=== PATIENT | female | born 1975 | race Caucasian/White ===

== ENCOUNTER 2020-02-21 11:23 | Outpatient (REF) | payer MEDICAID, SELFPAY | END 2020-02-21 11:24 | disposition home or self-care (01) | LOC: HO.LAB 11:23 | PROVIDERS: PCP Internal Medicine; Visit Provider Internal Medicine | DX: Z20.828 Contact with and (suspected) exposure to other viral communicable diseases (principal) | CPT/HCPCS: C9803; U0003 ==

== ENCOUNTER 2020-11-06 15:45 | Outpatient (REF) | payer OTHER, MEDICAID, SELFPAY | END 2020-11-06 15:46 | disposition home or self-care (01) | LOC: HO.LAB 15:45 | PROVIDERS: PCP Internal Medicine; Visit Provider Internal Medicine | DX: Z20.822 Contact with and (suspected) exposure to COVID-19 (principal) | CPT/HCPCS: C9803; U0003; U0005 ==

== ENCOUNTER 2021-01-07 08:09 | Outpatient (REF) | payer OTHER, MEDICAID, SELFPAY ==
--- NOTE | ~2021-01-07 | MM_ITS ---
EXAMINATION: MM SCREENING DIGITAL BREAST TOMOSYNTHESIS, BILATERAL CLINICAL INFORMATION: Screening. Asymptomatic. The lifetime risk of breast cancer based on the Tyrer-Cuzick Model is 7%. COMPARISON: Mammography: 11/19/2019, 12/28/2016, 11/04/2015, 10/26/2015; ultrasound right breast 11/04/2015, 12/28/2016, 11/19/2019. TECHNIQUE: Digital breast tomosynthesis is performed in both the craniocaudal and mediolateral oblique views along with computer-aided detection (CAD). Synthesized 2D images are generated from the tomosynthesis. FINDINGS: There are scattered areas of fibroglandular density (ACR BI-RADS breast composition Category b). There are no significant masses, abnormal calcifications, or other abnormalities. There is a stable oval mass anterior central 12:00 right breast, likely fibroadenoma on prior serial targeted ultrasound. Skin contours are smooth. No significant changes. MM/MM tomosynthesis screening BI IMPRESSION: No mammographic evidence of malignancy. ASSESSMENT: BI-RADS 2: Benign RECOMMENDATION: Routine annual mammography screening. This patient's information was entered into a reminder system with a target due date for their next mammogram.
== END 2021-01-07 08:10 | disposition home or self-care (01) ==
LOC: HO.MAMMO 08:09
PROVIDERS: PCP Internal Medicine; Visit Provider Internal Medicine
DX: Z12.31 Encounter for screening mammogram for malignant neoplasm of breast (principal)
CPT/HCPCS: 77063; 77067

== ENCOUNTER 2021-03-08 07:49 | Outpatient (REF) | payer OTHER, MEDICAID, SELFPAY ==
[2021-03-08 08:02] LABS: MANUAL DIFF FLAG NO
--- NOTE | 2021-03-08 08:03 | ECG_ITS ---
Test Reason : chest pain Blood Pressure : / mmHG Vent. Rate : 059 BPM Atrial Rate : 059 BPM P-R Int : 150 ms QRS Dur : 088 ms QT Int : 434 ms P-R-T Axes : 049 032 035 degrees QTc Int : 429 ms Sinus bradycardia with sinus arrhythmia Otherwise normal ECG No previous ECGs available Referred By: Lauren Blakely Electronically Signed By:RYAN MEEK
[2021-03-08 08:22] LABS: Basophils Percent Auto 0.2 % (0-2); Eosinophils Absolute Auto 0.1 X10*3/uL (0.0-0.4); Eosinophils Percent Auto 1.5 % (0-4); Hematocrit 38.1 % (37.0-47.0); Hemoglobin 12.6 g/dl (12.0-16.0); Imm Gran Abs Auto 0.04 X10*3/uL (0.00-0.03); Imm Gran Pct Auto 0.5 % (0.0-0.4); Lymphocytes Absolute Auto 3.1 X10*3/uL (1.2-4.9); Lymphocytes Percent Auto 37.8 % (20-40); Mean Corpuscular HGB Conc 33.1 g/dl (31.0-35.0); Mean Corpuscular Hemoglobin 30.1 pg (27.0-33.0); Mean Corpuscular Volume 90.9 fL (80.0-98.0); Mean Platelet Volume 10.5 fL (9.4-12.3); Monocytes Absolute Auto 0.6 X10*3/uL (0.1-1.2); Monocytes Percent Auto 6.7 % (2-11); Neutrophils Absolute Auto 4.4 x10*3/uL (2.0-8.3); Neutrophils Percent Auto 53.3 % (45-73); Platelet Count 320 X10*3/uL (160-400); Red Blood Count 4.19 X10*6/uL (4.20-5.50); Red Cell Distribution Width 11.7 % (11.0-16.0); White Blood Count 8.2 X10*3/uL (4.8-10.8)
[2021-03-08 08:57] LABS: Alanine Aminotransferase 32 U/L (0-31); Albumin Level 4.1 g/dL (3.5-5.0); Alkaline Phosphatase 67 U/L (39-117); Anion Gap 9 (12-20); Aspartate Amino Transferase 22 U/L (5-31); Bilirubin Total 0.7 mg/dL (0.0-1.0); Blood Urea Nitrogen 14 mg/dL (9-16); Calcium 8.8 mg/dL (8.4-10.2); Carbon Dioxide 27 mmol/L (22-29); Chloride 109 mmol/L (96-108); Cholesterol 175 mg/dL; Estimated Glomerular Filt Rate > 60; Glucose Fasting 99 mg/dL (60-99); HDL Cholesterol 44 mg/dL; LDL Cholesterol Calculated 106 mg/dl; Sodium 141 mmol/L (135-145); Total Protein 6.7 g/dL (6.5-8.0); Triglycerides 125 mg/dL
[2021-03-10 20:41] LABS: TS Negative Control Passed; TS Panel A 0; TS Panel B 0; TS Positive Control Passed; TSpotTB Negative (Negative)
[2021-03-15 16:31] LABS: Vitamin D 25-OH, D2 <4 ng/mL; Vitamin D 25-OH, D3 15 ng/mL; Vitamin D 25-OH, Total 15 ng/mL (30-100)
== END 2021-03-08 07:50 | disposition home or self-care (01) ==
LOC: HO.LAB 07:49
PROVIDERS: PCP Internal Medicine; Visit Provider Internal Medicine
DX: Z11.1 Encounter for screening for respiratory tuberculosis (principal); R07.9 Chest pain, unspecified; E66.9 Obesity, unspecified; Z68.31 Body mass index [BMI] 31.0-31.9, adult; D64.9 Anemia, unspecified; F32.1 Major depressive disorder, single episode, moderate; E55.9 Vitamin D deficiency, unspecified; E78.5 Hyperlipidemia, unspecified
CPT/HCPCS: 36415; 80053; 80061; 82306; 84443; 85025; 86481; 93005

== ENCOUNTER 2021-03-26 08:46 | Day surgery (SDC) | payer OTHER, MEDICAID, SELFPAY ==
[2021-03-18 13:54] VITALS: BMI 31.8
[2021-03-18 15:37] VITALS: BMI 31.6
[2021-03-26 09:09] VITALS: BP 133/82; PULSE 72; RESP 16; TEMP 36.3; O2SAT 96
--- NOTE | 2021-03-26 09:35 | P.CONAN_ITS ---
ON LICENSE OF [facility] Active Problems Active Problems: All Active Problems (Updated 03/18/21 @ 15:35 by Ann oropeza RN) Chest pain (Acute) Anxiety (Acute) Diverticulosis (Acute) Moderate major depression (Acute) Class 1 obesity with body mass index (BMI) of 31.0 to 31.9 in adult (Acute) GERD (gastroesophageal reflux disease) (Acute) Past Medical History Medical History Anxiety Chest pain Class 1 obesity with body mass index (BMI) of 31.0 to 31.9 in adult Diverticulosis GERD (gastroesophageal reflux disease) Moderate major depression Functional capacity: independent ambulation Patient : No Family History Family History Mother Hypertension Lung cancer Alzheimer disease Dementia Father Hypotension Daughter Substance use disorder Surgical History Surgical History H/O total hysterectomy History of appendectomy History of cholecystectomy History of ERCP History of tubal ligation Hx of colonoscopy Hx of ovarian cystectomy History of Problems with Anesthesia: No Social History Social History Housing: Apartment Alcohol intake: current Alcohol intake frequency: holidays/special occasions only Alcohol type: other Patient Tobacco Use Status: Never used Tobacco e-Cigarette/Vaping Use: Never Used Second Hand Smoke Exposure: No Are you DNR?: No Advance Directives: No Advance Directives Information Provided: Yes Advance Directives on File: No service: No Current occupational status: employed 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 Current occupational exposures/hazards: No Meds Allergies Allergy/AdvReac Type Severity Reaction Status Date / Time No Known Allergies Allergy Verified 02/17/21 17:38 Home Medications Medication Instructions Recorded Confirmed Last Taken Type naproxen 250 mg tablet 250 mg PO BID PRN 03/18/21 03/18/21 Unknown History Exam Exam Date and Time: March 26, 202135 Height,Weight and Vital Signs: Height 5 ft 2 in Weight 78.471 kg Last Vital Signs Temp 97.4 F 03/26/21 09:09 Pulse 72 03/26/21 09:09 Resp 16 03/26/21 09:09 BP 133/82 03/26/21 09:09 Pulse Ox 96 03/26/21 09:09 Airway Mallampati Class: II TM Dist: >3cm Neck ROM: Full Heart: RRR Lungs: CTA Assessment and Plan Final Anesthetic Review History of Problems with Anesthesia: No Final Preanesthetic Review: No Changes in Pt Med Stat, Meds/Allgs Chart Reviewed, Consent Obtained/Reviewed and Anes Risks/Benef Reviewed Patient Risk: Low Procedure Risk: Low Anesthetic Plan Anesthetic Plan: MAC: Disposition: Standard PACU
--- NOTE | 2021-03-26 09:50 | MHC.SHP ---
Pre-Procedural Eval Section A Date of Service: 03/26/21 Section B Chief Complaint: abd pain,diarrhea,reflux Details of Present Illness: see h&p no changes Relevant Family History (Specify if Yes): No Relevant Social History: None Present Medications: see Short Stay Collaborative assessment Medical History: No relevant PMH History of Previous Operations: No relevant previous surgery Allergies: Allergies Allergy/AdvReac Type Severity Reaction Status Date / Time No Known Allergies Allergy Verified 02/17/21 17:38 Review of Systems Sugical H&P ROS: Negative: Constitution, Cardiovascular, Respiratory, Neurological, Psychiatric, Hem-Onc, Allergic/Immunologic, Gastrointestinal, Genitourinary, Musculoskeletal, Integumentary, Endocrine and Eyes/Ears/Nose/Throat Exam Surgical H&P Exam: Normal: HEENT, Normal: Heart, Normal: Lungs, Normal: Extremities, Normal: Abdomen, Normal: Skin and Normal: Neurological Plan Diagnosis/Plan: Unchanged I have reviewed the history and physical and performed a pertinent physical examination on my patient. No changes have occurred unless specified.
[2021-03-26] MEDS: Lactated Ringers 1,000 ML 50 ML IVCONT (09:56)
[2021-03-26 10:35] VITALS: BP 111/70; PULSE 75; RESP 16; TEMP 36.8; O2SAT 95
--- NOTE | 2021-03-26 10:42 | PM.OP ---
Brief Operative Note Date of Service: 03/26/21 Pre-op diagnosis: gerd,diarrhea Post-op diagnosis: same (colon polyp) Surgeon: Armando Manzano Anesthesia: MAC Was an Mail Carrier And Clerk used for this Procedure?: No Estimated blood loss (mL): 2 Pathology: other (bxs antrum, egj, polyp 80 cm, sigmoid bxs) Condition: stable Disposition: PACU
[2021-03-26 10:50] VITALS: BP 127/88; PULSE 69; RESP 18; O2SAT 96
[2021-03-26 11:05] VITALS: BP 135/87; PULSE 68; RESP 18; TEMP 36.7; O2SAT 99
--- NOTE | 2021-03-26 11:27 | OP_ITS ---
SURGEON: Armando Manzano MD INDICATIONS: Gastroesophageal reflux disease, abdominal pain, and diarrhea. PREOPERATIVE DIAGNOSIS: POSTOPERATIVE DIAGNOSIS: PROCEDURE PERFORMED: Upper endoscopy with biopsy, colonoscopy to the terminal ileum with biopsy and snare polypectomy. ESTIMATED BLOOD LOSS: COMPLICATIONS: ANESTHESIA: Medications, monitored anesthesia care. ASSISTANTS: SPECIMENS: DESCRIPTION OF PROCEDURE: History and physical performed. The risks and benefits of the procedure were explained to the patient. Informed consent was obtained. The patient was placed in the left lateral decubitus position. The Olympus video gastroscope was introduced into the esophagus, stomach, and duodenum. Examination was performed. The scope was removed. She was repositioned for colonoscopy. A digital rectal exam was performed and was found to be normal. The Olympus pediatric video colonoscope was introduced into the rectum and advanced to the cecum without difficulty. The cecum was identified by transillumination, palpation, and identification of the ileocecal valve. Examination was performed. The scope was removed. She tolerated both procedures well and was transferred to the recovery area in stable condition. FINDINGS: Upper endoscopy: Esophagus: The esophagus was normal. There was no esophagitis. Biopsies were obtained from the EG junction. Stomach: The stomach showed no evidence of masses, ulcers, or polyps. Antral biopsies were obtained to rule out H pylori. Duodenum: The bulb and second portion were normal. Colonoscopy: The terminal ileum was examined and appeared normal. The visualized colonic mucosa was normal. The quality of the prep was good. At 80 cm from the anal verge, was a 6 mm polyp, which was removed with a snare and recovered via suction. The visualized colonic mucosa was without evidence of colitis. Biopsies were obtained from the sigmoid to evaluate for microscopic colitis. Retroflexed examination showed some small internal hemorrhoids. IMPRESSION: 1. Gastroesophageal reflux disease. 2. Colon polyp. RECOMMENDATION: Follow up the biopsy results. MD HEIDE Morales/CHYNA / [id number] MTDKatiuska
--- NOTE | 2021-03-26 11:52 | HO.POSTANES ---
Post Anesthesia Evaluation Post Anesthesia Evaluation Vital Signs: Vital Signs Temp Pulse Resp BP Pulse Ox 03/26/21 11:05 98.1 F 68 18 135/87 99 03/26/21 10:50 69 18 127/88 96 03/26/21 10:35 98.3 F 75 16 111/70 95 03/26/21 09:09 97.4 F 72 16 133/82 96 Anesthesia: Monitored Mental Status: Awake Pain Control: Satisfactory Nausea/Vomiting: None Hydration: Adequate Anesthesia-Related Issues: No Anes. Related Issues
== END 2021-03-26 11:53 | disposition home or self-care (01) ==
PROVIDERS: PCP Internal Medicine; Visit Provider Internal Medicine Gastroenterology
PROC: (CPT 45385; principal; 2021-03-26 10:00)
DX: R10.31 Right lower quadrant pain (principal); R19.7 Diarrhea, unspecified; D12.5 Benign neoplasm of sigmoid colon; K64.8 Other hemorrhoids; Z87.19 Personal history of other diseases of the digestive system; K21.9 Gastro-esophageal reflux disease without esophagitis; I10 Essential (primary) hypertension; Z79.899 Other long term (current) drug therapy
CPT/HCPCS: 45385; 45380; 43239; 88305; 88342

== ENCOUNTER → 2021-07-29 12:45 | Outpatient (BNVA) | payer OTHER, SELFPAY | PROVIDERS: PCP Internal Medicine; Visit Provider Internal Medicine | DX: L25.9 Unspecified contact dermatitis, unspecified cause (principal); R21 Rash and other nonspecific skin eruption | CPT/HCPCS: 99202 ==

== ENCOUNTER → 2022-03-15 15:25 | Outpatient (BNVA) | payer OTHER, MEDICAID, SELFPAY | PROVIDERS: PCP Internal Medicine; Visit Provider Orthopaedic Surgery | DX: R20.2 Paresthesia of skin (principal) ==

== ENCOUNTER 2022-04-27 11:38 | Outpatient (REF) | payer OTHER, MEDICAID, SELFPAY ==
--- NOTE | 2022-04-27 09:00 | EMG_ITS ---
Please see scanned EMG / Nerve Conduction Report. MTDD
== END 2022-04-27 11:39 | disposition home or self-care (01) ==
LOC: HO.NEURO 11:38
PROVIDERS: PCP Internal Medicine; Visit Provider Internal Medicine
DX: R20.2 Paresthesia of skin (principal)
CPT/HCPCS: 95885; 95913

== ENCOUNTER → 2022-05-03 09:17 | Outpatient (BNVA) | payer OTHER, MEDICAID, SELFPAY | PROVIDERS: PCP Internal Medicine; Visit Provider Orthopaedic Surgery | DX: Z01.818 Encounter for other preprocedural examination (principal); G56.03 Carpal tunnel syndrome, bilateral upper limbs; M67.432 Ganglion, left wrist | CPT/HCPCS: 99212 ==

== ENCOUNTER 2022-06-16 14:05 | Day surgery (SDC) | payer MEDICAID, SELFPAY ==
[2022-06-16 14:08] VITALS: BP 147/98; PULSE 83; RESP 18; TEMP 36.6; O2SAT 96
[2022-06-16 14:20] VITALS: BMI 33.0
--- NOTE | 2022-06-16 14:47 | MHC.SHP ---
Pre-Procedural Eval Section A Date of Service: 06/16/22 The patient is an INPATIENT: No The History & Physical has been completed within 30 days and I have reviewed it.: Yes Section B Chief Complaint: Carpal tunnel syndrome, left upper limb Allergies: Allergies Allergy/AdvReac Type Severity Reaction Status Date / Time No Known Allergies Allergy Verified 05/03/22 09:46 Plan I have reviewed the history and physical and performed a pertinent physical examination on my patient. No changes have occurred unless specified. Time Spent With Patient Time: Total time managing care of this patient today ____ minutes.
--- NOTE | 2022-06-16 14:48 | W.PM.OPN ---
Operative Note Operative Note Date of Service: 06/16/22 Narrative: Preop diagnosis: 1. Left Carpal tunnel syndrome Postop diagnosis: same Procedure: 1. Left Carpal tunnel release Surgeon: Caterina Monte MD Anesthesia: local block using 1% lidocaine with epinephrine Findings: Thickened transverse carpal ligament. EBL: Less than 5 mL Specimens: None Complications: None Disposition: Brought to recovery room in stable condition Plan: Follow-up for 10-14 days for wound check and suture removal Indications: The patient is 47 years old, with left carpal tunnel syndrome that has been unresponsive to nonoperative management. The risks and benefits of operative treatment including but not limited to risk of damage to blood vessels, nerves, tendons, infection, persistent pain, persistent symptoms, or possible need for additional surgery were discussed with the patient and the patient wishes to proceed with surgery. Procedure: Once consent was obtained a local block was performed using a combination of 1% lidocaine with epinephrine. The patient was then brought back to the operating suite and placed on the operative table in supine position. The left upper extremity was prepped and draped in a standard surgical fashion. Once assured that we had a good block, a 2.0 cm longitudinal incision was made centered over the carpal tunnel. The incision was made through the skin to the subcutaneous tissues using a #15 blade. Dissection was made down to the level of the transverse carpal ligament with care being taken to protect the palmar cutaneous nerve. Once the transverse carpal ligament was clearly visualized, a longitudinal incision was made in the transverse carpal ligament 1st using a #15 blade, then using tenotomy scissors under direct visualization. Care was taken to look for and protect the motor branch of the median nerve when seen in this area. Once satisfied with our carpal tunnel release the wound was copiously irrigated with normal saline and hemostasis was obtained with a brief period of local pressure. The skin edges were reapproximated with some 5.0 nylon suture material and a sterile dressing was applied. The patient appears to have tolerated the procedure well and with no complications. All digits were well vascularized at the conclusion of the case.
[2022-06-16 15:08] VITALS: BP 140/77; PULSE 96; RESP 18; TEMP 36.2; O2SAT 97
== END 2022-06-16 15:13 | disposition home or self-care (01) ==
PROVIDERS: PCP Internal Medicine; Visit Provider Orthopaedic Surgery
PROC: (CPT 64721; principal; 2022-06-16 11:10)
DX: G56.02 Carpal tunnel syndrome, left upper limb (principal); R20.0 Anesthesia of skin; R20.2 Paresthesia of skin; F33.1 Major depressive disorder, recurrent, moderate; F41.1 Generalized anxiety disorder; E55.9 Vitamin D deficiency, unspecified; E66.8 Other obesity; Z68.32 Body mass index [BMI] 32.0-32.9, adult
CPT/HCPCS: 64721; J0171

== ENCOUNTER → 2022-06-29 15:25 | Outpatient (BNVA) | payer MEDICAID, SELFPAY | PROVIDERS: PCP Internal Medicine; Visit Provider Orthopaedic Surgery | DX: Z47.89 Encounter for other orthopedic aftercare (principal); G56.02 Carpal tunnel syndrome, left upper limb; Z86.69 Personal history of other diseases of the nervous system and sense organs | CPT/HCPCS: 99212 ==

== ENCOUNTER 2022-10-11 12:25 | Outpatient (AMB) | payer OTHER, MEDICAID, SELFPAY ==
--- NOTE | 2022-10-11 12:34 | A.OFFVIS_ITS ---
Intake Vital Signs 10/11/22 12:38 Height 5 ft 2 in Weight 181 lb BMI 33.1 Intake Visit Reasons: O/V RT hand CTR/ discuss sx/s/p left CTR Intake Note: Jennifer 47 yr old female presents today for her right hand numbness and tingling. Hx of left hand CTR. Patient is ready to have her left hand done. Allergies No Known Allergies Allergy (Verified 10/11/22 12:47) HPI O/V RT hand CTR/ discuss sx/s/p left CTR HPI Details Jennifer is a 47 year old right hand dominant woman who presents to discuss her right carpal tunnel syndrome. She is S/P left carpal tunnel release, DOS: 06/16/22. In regards to her right hand her numbness has become more constant in the median nerve distribution, worse at night. In regards to her left hand, she says her sensation is normal. She has some pain when lifting heavy objects however, but says this is improving. [facility] Medical History Anxiety Back pain Chest pain Class 1 obesity with body mass index (BMI) of 31.0 to 31.9 in adult Diverticulosis GERD (gastroesophageal reflux disease) Hypovitaminosis D Left hand pain Moderate major depression Neck pain Surgical History H/O total hysterectomy History of appendectomy History of cholecystectomy History of ERCP History of tubal ligation Hx of colonoscopy Hx of ovarian cystectomy Family History Mother Hypertension Lung cancer Alzheimer disease Dementia Father Emphysema lung Daughter Substance use disorder Social History Housing: Apartment Alcohol intake: current Alcohol intake frequency: holidays/special occasions only Alcohol type: hard liquor Patient Tobacco Use Status: Never used Tobacco e-Cigarette/Vaping Use: Never Used Second Hand Smoke Exposure: No service: No Current occupational status: employed 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, 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 Current occupational exposures/hazards: No Cognitive needs: No Hearing needs: No Vision needs: No Review of Systems Const All systems reviewed & are unremarkable except as noted in HPI and below Physical Exam Vital Signs: BMI result Body Mass Index 33.1 Const General: no acute distress and alert Orientation/consciousness: patient oriented x3 Neuro General: patient oriented x3 Extrem Other: Evaluation of Right Upper Extremity: The patient is alert, oriented, and in no acute distress Neuro: Dense numbness in the median nerve distribution No thenar or intrinsic wasting Good APB muscle belly firing and good finger cross Vascular: Cap refill brisk ROM: Can bring fingers closed to a fist and back out to full extension. Good active wrist ROM Nerve Conduction Study: Impression: Moderate bilateral carpal tunnel syndrome Normal EMG of left C5-T1 innervated muscles Dr. Limon 04/27/22 Psych Appearance: grossly normal Affect: normal affect Attitude: cooperative Assessment & Plan Assessment & Plan (1) Carpal tunnel syndrome of right wrist: Code(s): G56.01 - Carpal tunnel syndrome, right upper limb (2) Carpal tunnel syndrome of left wrist: Code(s): G56.02 - Carpal tunnel syndrome, left upper limb Plan Assessment & Plan: 1. Right Carpal Tunnel syndrome, moderate With Dense numbness I educated her about this condition I discussed treatment options The patient would like to proceed with surgery he risks and benefits of operative treatment were discussed with the patient and the patient wishes to proceed with surgery. These risks include, but are not limited to risk of damage to blood vessels, nerves, tendons, infection, recu rrence, incomplete relief of preoperative symptoms, persistent pain, possible need for further surgery and the risks associated with regional blocks and anesthesia. The plan is to take the patient to the operating room sometime in the next few weeks for the following procedures: 1. Right carpal tunnel release, under local All of the preoperative paperwork including the consent was filled out today. All the patient's questions were answered. The patient understands that they will be contacted by our certified caregiver soon to schedule this procedure She denies Diabetes, blood thinners, asthma, heart, lung, kidney issues 2. Left Carpal Tunnel syndrome, S/P release DOS: 06/16/22 Pre-operatively with dense numbness in the left middle finger, and intermittent but daily numbness in the thumb and index fingers Now with normal sensation to all digits, including the middle finger. 3. Left dorsal wrist mass This has resolved Scribed for Caterina Monte MD by Madhu Villatoro director medical writing, on 10/11/22 at 1:10 PM, EST. Coding Level of Care Code Est Pt Level 4 (53344) Diagnoses Carpal tunnel syndrome of right wrist G56.01 Carpal tunnel syndrome of left wrist G56.02
[2022-10-11 12:38] VITALS: BMI 33.1
== END 2022-10-11 13:18 | disposition home or self-care (01) ==
PROVIDERS: PCP Internal Medicine; Visit Provider Orthopaedic Surgery
DX: G56.01 Carpal tunnel syndrome, right upper limb (principal); G56.02 Carpal tunnel syndrome, left upper limb
CPT/HCPCS: 99214

== ENCOUNTER → 2022-10-11 12:25 | Outpatient (BNVA) | payer OTHER, MEDICAID, SELFPAY | PROVIDERS: PCP Internal Medicine; Visit Provider Orthopaedic Surgery | DX: G56.03 Carpal tunnel syndrome, bilateral upper limbs (principal) | CPT/HCPCS: 99212 ==

== ENCOUNTER 2022-12-05 09:23 | Day surgery (SDC) | payer OTHER, MEDICAID, SELFPAY ==
[2022-12-05 09:48] VITALS: BMI 33.8
--- NOTE | 2022-12-05 10:05 | MHC.SHP ---
Pre-Procedural Eval Section A Date of Service: 12/05/22 The patient is an INPATIENT: No Changes since office visit: No Cold of Flu in the past 2 weeks, No New Medical Problems, No Changes in Medication and No Patient answered all questions The History & Physical has been completed within 30 days and I have reviewed it.: Yes Section B Chief Complaint: Carpal tunnel syndrome, right upper limb Allergies: Allergies Allergy/AdvReac Type Severity Reaction Status Date / Time No Known Allergies Allergy Verified 10/11/22 12:47 Plan I have reviewed the history and physical and performed a pertinent physical examination on my patient. No changes have occurred unless specified. Time Spent With Patient Time: Total time managing care of this patient today ____ minutes.
--- NOTE | 2022-12-05 10:05 | W.PM.OPN ---
Operative Note Operative Note Date of Service: 12/05/22 Narrative: Preop diagnosis: 1. Right Carpal tunnel syndrome Postop diagnosis: same Procedure: 1. Right Carpal tunnel release Surgeon: Caterina Monte MD Anesthesia: local block using 1% lidocaine with epinephrine Findings: Thickened transverse carpal ligament. EBL: Less than 5 mL Specimens: None Complications: None Disposition: Brought to recovery room in stable condition Plan: Follow-up for 10-14 days for wound check and suture removal Indications: The patient is 47 years old, with right carpal tunnel syndrome that has been unresponsive to nonoperative management. The risks and benefits of operative treatment including but not limited to risk of damage to blood vessels, nerves, tendons, infection, persistent pain, persistent symptoms, or possible need for additional surgery were discussed with the patient and the patient wishes to proceed with surgery. Procedure: Once consent was obtained a local block was performed using a combination of 1% lidocaine with epinephrine. The patient was then brought back to the operating suite and placed on the operative table in supine position. The right upper extremity was prepped and draped in a standard surgical fashion. Once assured that we had a good block, a 2.0 cm longitudinal incision was made centered over the carpal tunnel. The incision was made through the skin to the subcutaneous tissues using a #15 blade. Dissection was made down to the level of the transverse carpal ligament with care being taken to protect the palmar cutaneous nerve. Once the transverse carpal ligament was clearly visualized, a longitudinal incision was made in the transverse carpal ligament 1st using a #15 blade, then using tenotomy scissors under direct visualization. Care was taken to look for and protect the motor branch of the median nerve when seen in this area. Once satisfied with our carpal tunnel release the wound was copiously irrigated with normal saline and hemostasis was obtained with a brief period of local pressure. The skin edges were reapproximated with some 5.0 nylon suture material and a sterile dressing was applied. The patient appears to have tolerated the procedure well and with no complications. All digits were well vascularized at the conclusion of the case.
[2022-12-05 12:59] VITALS: BP 150/96; PULSE 68
== END 2022-12-05 13:01 | disposition home or self-care (01) ==
PROVIDERS: PCP Internal Medicine; Visit Provider Orthopaedic Surgery
PROC: (CPT 64721; principal; 2022-12-05 10:40)
DX: G56.01 Carpal tunnel syndrome, right upper limb (principal); R20.0 Anesthesia of skin; R20.2 Paresthesia of skin; E66.9 Obesity, unspecified; Z68.33 Body mass index [BMI] 33.0-33.9, adult; F41.1 Generalized anxiety disorder; K21.9 Gastro-esophageal reflux disease without esophagitis; F32.A Depression, unspecified; E55.9 Vitamin D deficiency, unspecified; Z90.49 Acquired absence of other specified parts of digestive tract
CPT/HCPCS: 64721; J0171

== ENCOUNTER → 2022-12-05 09:23 | Outpatient (BNV) | payer OTHER, MEDICAID, SELFPAY | PROVIDERS: PCP Internal Medicine; Visit Provider Orthopaedic Surgery | DX: G56.01 Carpal tunnel syndrome, right upper limb (principal) | CPT/HCPCS: 64721 ==

== ENCOUNTER 2022-12-16 09:35 | Outpatient (AMB) | payer OTHER, MEDICAID, SELFPAY ==
--- NOTE | 2022-12-16 09:41 | MHC.OFFVIS ---
Intake Intake Visit Reasons: PO RT CTR 12/05/22AR Intake Note: This is a 47 year old female who presents for a post op appointment for CTR done on 12/05/22 by AR. She reports no pain but some numbness. Allergies No Known Allergies Allergy (Verified 12/16/22 09:47) Medication List - Last Reconciled 12/16/22 by Paula Villar, RN cholecalciferol (vitamin D3) 50 mcg PO DAILY 90 days [cock up splint wear on both wrists at night ] hydrocodone-acetaminophen 5-325 mg 1 tab PO Q4-6H PRN naproxen 250 mg PO BID PRN 30 days omeprazole 20 mg PO DAILY 90 days oxycodone-acetaminophen 5-325 mg 1 tab PO Q6H PRN HPI PO RT CTR 12/05/22AR HPI Details The patient is seen for 1st postop visit following a right carpal tunnel release with me on 12/05/2022. She reports that she is doing well, but has had no improvement in the numbness in her fingertips. The nighttime symptoms however have improved. [facility] Medical History Hypovitaminosis D Left hand pain Back pain Neck pain Chest pain Anxiety Diverticulosis Moderate major depression Class 1 obesity with body mass index (BMI) of 31.0 to 31.9 in adult GERD (gastroesophageal reflux disease) Surgical History History of carpal tunnel release (~11/2022) H/O total hysterectomy Hx of colonoscopy History of ERCP Hx of ovarian cystectomy History of tubal ligation History of cholecystectomy History of appendectomy Family History Mother Hypertension Lung cancer Alzheimer disease Dementia Father Emphysema lung Daughter Substance use disorder Social History Housing: Apartment Alcohol intake: current Alcohol intake frequency: holidays/special occasions only Alcohol type: hard liquor Patient Tobacco Use Status: Never used Tobacco e-Cigarette/Vaping Use: Never Used Second Hand Smoke Exposure: No service: No Current occupational status: employed 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 Her incision is healing well with no erythema drainage or evidence of infection. Sutures removed and Steri-Strips applied. She can make a fist and extend all of her digits without difficulty. She still has numbness in the median nerve distribution of her right hand. Assessment & Plan Assessment & Plan (1) Carpal tunnel syndrome of left wrist: Code(s): G56.02 - Carpal tunnel syndrome, left upper limb (2) Carpal tunnel syndrome of right wrist: Code(s): G56.01 - Carpal tunnel syndrome, right upper limb Plan Assessment and plan: 1. Right carpal tunnel syndrome status post release Date of surgery 12/05/2022 With dense numbness preoperatively She still has dense numbness I educated her about the postoperative course. Sutures removed and Steri-Strips applied. A she knows that we will now need to wait and see if she has some improvement in her sensation. This point she can follow up p.r.n.. 2. Left Carpal Tunnel syndrome, S/P release DOS: 06/16/22 Pre-operatively with dense numbness in the left middle finger, and intermittent but daily numbness in the thumb and index fingers Now with normal sensation to all digits, including the middle finger. 3. Left dorsal wrist mass This has resolved Coding Level of Care Code Global (79090) Diagnoses Carpal tunnel syndrome of left wrist G56.02 Carpal tunnel syndrome of right wrist G56.01
== END 2022-12-16 10:25 | disposition home or self-care (01) ==
PROVIDERS: PCP Internal Medicine; Visit Provider Orthopaedic Surgery
DX: G56.02 Carpal tunnel syndrome, left upper limb (principal); G56.01 Carpal tunnel syndrome, right upper limb
CPT/HCPCS: 99024

== ENCOUNTER → 2022-12-16 09:35 | Outpatient (BNVA) | payer OTHER, MEDICAID, SELFPAY | PROVIDERS: PCP Internal Medicine; Visit Provider Orthopaedic Surgery ==

== ENCOUNTER → 2023-08-08 11:27 | Outpatient (BNVA) | payer OTHER, SELFPAY | PROVIDERS: PCP Internal Medicine; Visit Provider Physician Assistant Medical | DX: S61.012A Laceration without foreign body of left thumb without damage to nail, initial encounter (principal); W26.8XXA Contact with other sharp object(s), not elsewhere classified, initial encounter; Z23 Encounter for immunization | CPT/HCPCS: 12001; 90715; 99203 ==

== ENCOUNTER → 2023-08-10 08:54 | Outpatient (BNVA) | payer OTHER, SELFPAY | PROVIDERS: PCP Internal Medicine; Visit Provider Physician Assistant Medical | DX: S61.012A Laceration without foreign body of left thumb without damage to nail, initial encounter (principal); W26.8XXA Contact with other sharp object(s), not elsewhere classified, initial encounter | CPT/HCPCS: 99213 ==

== ENCOUNTER → 2023-08-17 08:52 | Outpatient (BNVA) | payer OTHER, SELFPAY | PROVIDERS: PCP Internal Medicine; Visit Provider Physician Assistant Medical | DX: S61.012A Laceration without foreign body of left thumb without damage to nail, initial encounter (principal); W26.8XXA Contact with other sharp object(s), not elsewhere classified, initial encounter; Z48.02 Encounter for removal of sutures | CPT/HCPCS: 99212; 99213 ==